=== PATIENT | male | born 1995 | race African-American/Black ===

== ENCOUNTER 2021-04-10 21:37 | Inpatient (IN) | payer OTHER ==
--- NOTE | 2021-04-10 22:05 | ED ---
Psych HPI - General Source: police, EMS, RN notes reviewed, old records reviewed Mode of arrival: EMS Limitations: altered mental status, physical limitation - History of Present Illness MD Complaint: altered mental status -: unknown Associated Psychiatric Symptoms: racing thoughts, auditory hallucinations Quality: resolved prior to arrival Improves With: medication Worsens With: none Context: other (Unknown) Associated Symptoms: other (Unknown) Treatments Prior to Arrival: placed on mental health hold <Derrell Gilman - Last Filed: 04/11/21 06:52> <Abelardo Sesay - Last Filed: 04/11/21 13:01> - General Chief Complaint: Psychiatric Symptoms Stated Complaint: Mental Health Time Seen by Provider: 04/10/21 21:39 - History of Present Illness Initial Comments: This is a unknown, patient is brought in under acute psychosis, delirium and now significantly sedated. Patient is unable history secondary sedated state (Derrell Gilman) - Related Data Home Medications Medication Instructions Recorded Confirmed Unable To Assess [Unable to Assess] 04/11/21 04/11/21 Allergies Allergy/AdvReac Type Severity Reaction Status Date / Time Unable to Assess Allergy Verified 04/10/21 21:58 Review of Systems ROS Other: All systems not noted in ROS Statement are negative. <Derrell Gilman - Last Filed: 04/11/21 06:52> ROS Other: All systems not noted in ROS Statement are negative. <Abelardo Sesay - Last Filed: 04/11/21 13:01> ROS Statement: Those systems with pertinent positive or pertinent negative responses have been documented in the HPI. Past Medical History Past Medical History: Unable to Obtain History of Any Multi-Drug Resistant Organisms: Unobtainable Past Surgical History: Unable to Obtain Past Psychological History: Unable to Obtain Smoking Status: Unknown if ever smoked Past Alcohol Use History: Unable to Obtain Past Drug Use History: Unable to Obtain <Derrell Gilman - Last Filed: 04/11/21 06:52> General Exam Limitations: altered mental status General appearance: alert, in no apparent distress Head exam: Present: atraumatic, normocephalic, normal inspection Eye exam: Present: normal appearance, PERRL, EOMI. Absent: scleral icterus, conjunctival injection, periorbital swelling ENT exam: Present: normal exam, mucous membranes moist Neck exam: Present: normal inspection. Absent: tenderness, meningismus, lymphadenopathy Respiratory exam: Present: normal lung sounds bilaterally. Absent: respiratory distress, wheezes, rales, rhonchi, stridor Cardiovascular Exam: Present: regular rate, normal rhythm, normal heart sounds. Absent: systolic murmur, diastolic murmur, rubs, gallop, clicks GI/Abdominal exam: Present: soft, normal bowel sounds. Absent: distended, tenderness, guarding, rebound, rigid Extremities exam: Present: normal inspection, full ROM, normal capillary refill. Absent: tenderness, pedal edema, joint swelling, calf tenderness Back exam: Present: normal inspection Neurological exam: Present: alert, oriented X3, CN II-XII intact Psychiatric exam: Present: normal affect, normal mood Skin exam: Present: warm, dry, intact, normal color. Absent: rash <Derrell Gilman - Last Filed: 04/11/21 06:52> Course <Derrell Gilman - Last Filed: 04/11/21 06:52> Vital Signs 04/10/21 04/10/21 04/10/21 21:52 22:00 22:20 Temperature 97.1 F L Pulse Rate 100 84 81 Respiratory 14 18 18 Rate Blood Pressure 122/75 136/90 137/89 O2 Sat by Pulse 100 97 96 Oximetry 04/10/21 04/10/21 04/10/21 22:40 23:00 23:30 Temperature Pulse Rate 76 79 77 Respiratory 18 18 18 Rate Blood Pressure 115/60 123/74 117/71 O2 Sat by Pulse 98 96 97 Oximetry 04/11/21 04/11/21 00:14 08:13 Temperature 97.6 F Pulse Rate 75 88 Respiratory 18 18 Rate Blood Pressure 109/64 131/90 O2 Sat by Pulse 96 100 Oximetry - Reevaluation(s) Reevaluation #1: 04/10/21 22:15 Medical records reviewed (Derrell Gilman) Procedures - Restraint - Face to Face Restraint Occurrence 1 Patient's Immediate Situation: Endangers self safety, Endangers others' safety, Endangers staff safety, Violent behavior Patient's Reaction to the Intervention: Appropriate, Uncooperative, Hostile, Anxious Need to Continue or Terminate Restraint or Seclusion: Continue Face to Face Eval of Restraint Date: 04/11/21 Face to Face Eval of Restraint Time: 03:00 Restraint Occurrence 2 Patient's Immediate Situation: Endangers self safety, Endangers others' safety, Endangers staff safety Patient's Reaction to the Intervention: Appropriate, Uncooperative, Anxious Patient's Medical & Behavioral Condition: Awake, Anxious, Agitated, Paranoid, Manic Need to Continue or Terminate Restraint or Seclusion: Continue Face to Face Eval of Restraint Date: 04/11/21 Face to Face Eval of Restraint Time: 07:00 <Derrell Gilman - Last Filed: 04/11/21 06:52> - Restraint - Face to Face Restraint Occurrence 3 Patient's Immediate Situation: Endangers self safety, Endangers others' safety, Endangers staff safety, Violent behavior Patient's Reaction to the Intervention: Uncooperative, Angry, Hostile, Ag gressive, Combative Patient's Medical & Behavioral Condition: Awake, Alert, Anxious, Agitated, Flight of ideas, Bizarre behavior Need to Continue or Terminate Restraint or Seclusion: Continue Face to Face Eval of Restraint Date: 04/11/21 Face to Face Eval of Restraint Time: 11:00 <Abelardo Sesay - Last Filed: 04/11/21 13:01> Medical Decision Making - Lab Data Result diagrams: 04/10/21 22:29 04/10/21 22:29 <Derrell Gilman - Last Filed: 04/11/21 06:52> - Lab Data Result diagrams: 04/10/21 22:29 04/10/21 22:29 - Radiology Data Radiology results: report reviewed (Imaging reviewed CT shows evidence of left occipital small hematoma otherwise unremarkable CAT scan.), image reviewed <Abelardo Sesay - Last Filed: 04/11/21 13:01> - Medical Decision Making Patient was evaluated by psychiatric service he is found to be a risk to himself he'll be admitted for inpatient evaluation and treatment of acute psychosis in mood disorder. Patient did become violent and did require restraint in the emergency department both physical and chemical. (Abelardo Sesay) - Lab Data Lab Results 04/10/21 04/10/21 04/11/21 Range/Units 22:29 22:29 02:50 WBC 10.0 (3.8-10.6) k/uL RBC 4.56 (4.30-5.90) m/uL Hgb 13.6 (13.0-17.5) gm/dL Hct 41.8 (39.0-53.0) % MCV 91.6 (80.0-100.0) fL MCH 29.9 (25.0-35.0) pg MCHC 32.6 (31.0-37.0) g/dL RDW 13.3 (11.5-15.5) % Plt Count 257 (150-450) k/uL MPV 8.4 Neutrophils % 89 % Lymphocytes % 6 % Monocytes % 3 % Eosinophils % 1 % Basophils % 0 % Neutrophils # 8.9 H (1.3-7.7) k/uL Lymphocytes # 0.6 L (1.0-4.8) k/uL Monocytes # 0.3 (0-1.0) k/uL Eosinophils # 0.1 (0-0.7) k/uL Basophils # 0.0 (0-0.2) k/uL Sodium 140 (137-145) mmol/L Potassium 3.9 (3.5-5.1) mmol/L Chloride 107 (98-107) mmol/L Carbon Dioxide 20 L (22-30) mmol/L Anion Gap 13 mmol/L BUN 13 (9-20) mg/dL Creatinine 0.74 (0.66-1.25) mg/dL Est GFR (CKD-EPI)AfAm 76 (>60 ml/min/1.73 sqM) Est GFR (CKD-EPI)NonAf 66 (>60 ml/min/1.73 sqM) Glucose 91 (74-99) mg/dL Calcium 8.5 (8.4-10.2) mg/dL Salicylates <1.0 mg/dL Urine Opiates Screen Not Detected (NotDetected) Ur Oxycodone Screen Not Detected (NotDetected) Urine Methadone Screen Not Detected (NotDetected) Ur Propoxyphene Screen Not Detected (NotDetected) Acetaminophen <10.0 ug/mL Ur Barbiturates Screen Not Detected (NotDetected) U Tricyclic Antidepress Not Detected (NotDetected) Ur Phencyclidine Scrn Not Detected (NotDetected) Ur Amphetamines Screen Not Detected (NotDetected) U Methamphetamines Scrn Not Detected (NotDetected) U Benzodiazepines Scrn Not Detected (NotDetected) Urine Cocaine Screen Not Detected (NotDetected) U Marijuana (THC) Screen Detected H (NotDetected) Serum Alcohol 146 mg/dL Coronavirus (PCR) (Not Detectd) 04/11/21 Range/Units 08:20 WBC (3.8-10.6) k/uL RBC (4.30-5.90) m/uL Hgb (13.0-17.5) gm/dL Hct (39.0-53.0) % MCV (80.0-100.0) fL MCH (25.0-35.0) pg MCHC (31.0-37.0) g/dL RDW (11.5-15.5) % Plt Count (150-450) k/uL MPV Neutrophils % % Lymphocytes % % Monocytes % % Eosinophils % % Basophils % % Neutrophils # (1.3-7.7) k/uL Lymphocytes # (1.0-4.8) k/uL Monocytes # (0-1.0) k/uL Eosinophils # (0-0.7) k/uL Basophils # (0-0.2) k/uL Sodium (137-145) mmol/L Potassium (3.5-5.1) mmol/L Chloride (98-107) mmol/L Carbon Dioxide (22-30) mmol/L Anion Gap mmol/L BUN (9-20) mg/dL Creatinine (0.66-1.25) mg/dL Est GFR (CKD-EPI)AfAm (>60 ml/min/1.73 sqM) Est GFR (CKD-EPI)NonAf (>60 ml/min/1.73 sqM) Glucose (74-99) mg/dL Calcium (8.4-10.2) mg/dL Salicylates mg/dL Urine Opiates Screen (NotDetected) Ur Oxycodone Screen (NotDetected) Urine Methadone Screen (NotDetected) Ur Propoxyphene Screen (NotDetected) Acetaminophen ug/mL Ur Barbiturates Screen (NotDetected) U Tricyclic Antidepress (NotDetected) Ur Phencyclidine Scrn (NotDetected) Ur Amphetamines Screen (NotDetected) U Methamphetamines Scrn (NotDetected) U Benzodiazepines Scrn (NotDetected) Urine Cocaine Screen (NotDetected) U Marijuana (THC) Screen (NotDetected) Serum Alcohol mg/dL Coronavirus (PCR) Not Detected (Not Detectd) Disposition <Derrell Gilman - Last Filed: 04/11/21 06:52> <Abelardo Sesay - Last Filed: 04/11/21 13:01> Clinical Impression: Acute psychosis, Mood disorder Disposition: TRANSFER TO PSYCH HOSP/UNIT Condition: Fair Referrals: None,Stated [Primary Care Provider] - 1-2 days
[2021-04-10 22:36] LABS: Basophils % (A) 0 %; Eosinophils # (A) 0.1 k/uL (0-0.7); Eosinophils % (A) 1 %; HCT 41.8 % (39.0-53.0); HGB 13.6 gm/dL (13.0-17.5); Lymphocytes # (A) 0.6 k/uL (1.0-4.8); Lymphocytes % (A) 6 %; MCH 29.9 pg (25.0-35.0); MCHC 32.6 g/dL (31.0-37.0); MCV 91.6 fL (80.0-100.0); Mean Platelet Volume 8.4; Monocytes # (A) 0.3 k/uL (0-1.0); Monocytes % (A) 3 %; Neutrophils # (A) 8.9 k/uL (1.3-7.7); Neutrophils % (A) 89 %; Platelet Count 257 k/uL (150-450); RBC 4.56 m/uL (4.30-5.90); RDW 13.3 % (11.5-15.5)
[2021-04-10 22:45] LABS: Acetaminophen <10.0 ug/mL; African American GFR (CKD) 76 (>60 ml/min/1.73 sqM); Anion Gap 13 mmol/L; Blood Urea Nitrogen 13 mg/dL (9-20); Calcium 8.5 mg/dL (8.4-10.2); Carbon Dioxide 20 mmol/L (22-30); Chloride 107 mmol/L (98-107); Glucose 91 mg/dL (74-99); Non-African American GFR(CKD) 66 (>60 ml/min/1.73 sqM); Potassium 3.9 mmol/L (3.5-5.1); Salicylate <1.0 mg/dL; Sodium 140 mmol/L (137-145)
[2021-04-10 22:46] LABS: Alcohol 146 mg/dL
[2021-04-11] MEDS ORDERED: diphenhydrAMINE 50 MG/ML 1 ML VIAL IM STA ×2 (02:59→08:59)
[2021-04-11] MEDS ORDERED: LORazepam 2 MG/ML INJ IM STA ×2 (02:59→08:59)
[2021-04-11] MEDS ORDERED: ZIPRASIDONE 20 MG VIAL IM STA ×2 (03:06→08:59)
[2021-04-11 03:32] LABS: Amphetamine Screen,Urine Not Detected (NotDetected); Barbiturate Screen,Urine Not Detected (NotDetected); Benzodiazepines Screen,Urine Not Detected (NotDetected); Cocaine Screen,Urine Not Detected (NotDetected); Methadone Screen, Urine Not Detected (NotDetected); Opiate Screen,Urine Not Detected (NotDetected); Oxycodone Screen, Urine Not Detected (NotDetected); Phencyclidine Screen,Urine Not Detected (NotDetected); Tricyclic Antidepressant,Urine Not Detected (NotDetected); Urn Cannabinoid Scrn Detected (NotDetected)
--- NOTE | 2021-04-11 12:41 | CT ---
EXAMINATION TYPE: CT brain wo con DATE OF EXAM: 04/11/2021 COMPARISON: None. HISTORY: possible brain injury, headache. CT DLP: 1059.4 mGycm. Automated Exposure Control for Dose Reduction was Utilized. TECHNIQUE: CT scan of the head is performed without contrast. FINDINGS: There is no acute intracranial hemorrhage, mass effect, or midline shift identified. The ventricles and sulci are within normal limits in size. Hunt-white matter differentiation is maintain ed. The globes are intact and the visualized sinuses are clear. Small high left occipital acute scal p hematoma near axial image 53. The calvarium is intact. IMPRESSION: Small high left occipital acute scalp hematoma otherwise unremarkable study
[2021-04-11] MEDS ORDERED: MAGNESIUM HYDROXIDE 2,400 MG/10 ML CUP PO PRN (13:19)
[2021-04-11] MEDS ORDERED: ACETAMINOPHEN TAB 325 MG TAB PO PRN (13:19)
[2021-04-11] MEDS ORDERED: MAG HYDROX/AL HYDROX/SIMETH 30 ML CUP PO PRN (13:19)
[2021-04-11] MEDS ORDERED: chlorproMAZINE 25 MG TAB PO PRN (13:26)
[2021-04-11] MEDS: LORazepam 2 MG/ML INJ IM PRN (14:32)
[2021-04-11] MEDS: chlorproMAZINE 25 MG/ML 2 ML AMP IM PRN (14:33)
--- NOTE | 2021-04-11 14:52 | P.MHFACE ---
Face to Face Restrain/Seclus - Evaluation Patient's Immediate Situation: Endangers self safety, Endangers others' safety, Endangers staff safety, Violent behavior Patient's Reaction to the Intervention: Angry, Hostile, Belligerent, Aggressive, Combative, Resistive to care Patient's Medical & Behavioral Condition: Awake, Alert, Agitated, Manic Need to Continue or Terminate Restraint or Seclusion: Continue Face to Face Eval of Restraint Date: 04/11/21 Face to Face Eval of Restraint Time: 14:45
[2021-04-11] MEDS: NICOTINE 14MG/24HR PATCH TRANSDERM SCH (16:17)
[2021-04-11] MEDS ORDERED: chlorproMAZINE 25 MG TAB PO STA (16:38)
--- NOTE | 2021-04-11 23:00 | P.PN ---
Progress Note - Text Progress Note Date: 04/11/21 The patient has been actively psychotic and also refused to be seen or evaluated.
[2021-04-12] MEDS: LORazepam 2 MG/ML INJ IM PRN (06:30)
[2021-04-12] MEDS: chlorproMAZINE 25 MG/ML 2 ML AMP IM PRN (06:30)
[2021-04-12] MEDS: NICOTINE 14MG/24HR PATCH TRANSDERM SCH (09:29)
[2021-04-12] MEDS ORDERED: chlorproMAZINE 25 MG/ML 2 ML AMP IM ONE (10:17)
[2021-04-12] MEDS ORDERED: chlorproMAZINE 25 MG TAB PO PRN (11:12)
[2021-04-12] MEDS ORDERED: LORazepam 2 MG/ML INJ IM PRN (11:13)
[2021-04-12] MEDS ORDERED: chlorproMAZINE 25 MG/ML 2 ML AMP IM PRN (11:13)
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
[2021-04-12 12:44] LABS: Chol/HDL Ratio 2.95 Ratio; HDL Cholesterol 44.7 mg/dL (40.00-60.00); LDL Cholesterol,Calculated 71.3 mg/dL (0.0-131.0); Triglycerides 80.1 mg/dL (0.00-149.00); VLDL Calculation 16.02 mg/dL (5.00-40.00)
[2021-04-12] MEDS: LORazepam 1 MG TAB PO PRN (15:33)
[2021-04-13] MEDS: NICOTINE 14MG/24HR PATCH TRANSDERM SCH (08:07)
[2021-04-13] MEDS ORDERED: cloNIDine HCL 0.1 MG TAB PO STA (10:12)
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
[2021-04-13] MEDS ORDERED: cloNIDine HCL 0.1 MG TAB PO SCH (21:00)
[2021-04-13] MEDS: PALIPERIDONE 3 MG TAB.ER.24 PO SCH (21:18)
[2021-04-14] MEDS: cloNIDine HCL 0.2 MG TAB PO SCH ×2 (08:18→20:10)
[2021-04-14 08:26] VITALS: RESP 16; TEMP 97.7
[2021-04-14] MEDS: NICOTINE 14MG/24HR PATCH TRANSDERM SCH (08:26)
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
[2021-04-14] MEDS: LORazepam 1 MG TAB PO PRN (17:11)
--- NOTE | 2021-04-14 17:58 | P.MDCNMH ---
History of Present Illness H&P Date: 04/14/21 Chief Complaint: Medical clearance 25-year-old man with no medical history presented for acute psychosis to the mental health unit. Medicine was consulted for medical clearance. Patient has no complaints at this time. Review of systems was negative for fevers, chills, nausea, vomiting, chest pain, palpitations, syncope, presyncope, abdominal pain, constipation, diarrhea, cough, dyspnea, dysuria, numbness/weakness. I reviewed his chart and did note that he has been at times tachycardic and hypertensive, controlled with clonidine. Review of Systems All Systems reviewed and pertinent positives and negatives noted in HPI, all other symptoms are negative Past Medical History Past Medical History: Unable to Obtain History of Any Multi-Drug Resistant Organisms: Unobtainable Past Surgical History: Unable to Obtain Smoking Status: Unknown if ever smoked Medications and Allergies Home Medications Medication Instructions Recorded Confirmed Type Unable To Assess [Unable to Assess] 04/11/21 04/11/21 History Allergies Allergy/AdvReac Type Severity Reaction Status Date / Time Unable to Assess Allergy Verified 04/10/21 21:58 Physical Exam Osteopathic Statement: *. No significant issues noted on an osteopathic structural exam other than those noted in the History and Physical/Consult. Vitals: Vital Signs Temp Pulse Resp BP Pulse Ox 04/14/21 08:00 97.7 F 96 16 120/82 98 04/13/21 21:20 103 H 14 138/71 Intake and Output 04/14/21 04/14/21 04/14/21 06:59 14:59 22:59 Other: Weight 77.79 kg Gen: awake, alert HEENT: normocephalic, atraumatic, good hearing acuity, moist mucous membranes Resp: good air exchange, breathing comfortably with no accessory muscle use CVS: good distal perfusion x 4, GI: soft, NTTP, ND : no SPT, no CVAT, blair catheter not present MSK: no pitting edema, no clubbing Neuro: non-focal, moving all extremities Psych: cooperative, euthymic mood Cranial Nerve Examination - Cranial Nerves Cranial Nerve II- Optic: Intact Cranial Nerve III- Oculomotor: Intact Cranial Nerve IV- Trochlear: Intact Cranial Nerve V- Trigeminal: Intact Cranial Nerve - Abducens: Intact Cranial Nerve VII- Facial: Intact Cranial Nerve VIII- Auditory: Intact Cranial Nerve IX- Glossopharyngeal: Intact Cranial Nerve X- Vagus: Intact Cranial Nerve XI- Accessory: Intact Cranial Nerve XII- Hypoglossal: Intact Results CBC & Chem 7: 04/10/21 22:29 04/10/21 22:29 Assessment and Plan Assessment: Hypertension Tachycardia -Agree with clonidine twice a day -Likely secondary to acute psychosis and agitation, now appears resolved -Continue consider discontinuing clonidine to see if patient is requiring antihypertensives upon discharge Acute psychosis Post-manic stress disorder -Care per primary team
[2021-04-14] MEDS: PALIPERIDONE 3 MG TAB.ER.24 PO SCH (20:10)
[2021-04-15] MEDS: cloNIDine HCL 0.2 MG TAB PO SCH ×2 (08:06→20:53)
[2021-04-15] MEDS: NICOTINE 14MG/24HR PATCH TRANSDERM SCH (08:09)
--- NOTE | 2021-04-15 11:51 | P.PN ---
Progress Note - Text Progress Note Date: 04/15/21 Clinical Problems: Acute psychosis, alcohol intoxication, post traumatic stress disorder, rule out alcohol use disorder, rule out cluster B personality disorder. Interim history: I reviewed the medical record and interviewed the patient. He denied problems or concerns other than wanting to be discharge and returning to work. I spoke with Dr. Neely said that he wants to person only assessed Rene prior to discharge. I explained the situation to Rene. He took them use approximately well considering yesterday he was insisting that he would lose his job if he were to be discharged Friday. He attributed to marked change in behavior to the alcohol use and implied that he has had blackouts with changes in behavior in the past. Mental status exam: He presented as a casually groomed young -[place] male with long braided hair. He made eye contact and attended to the interview. He had no distinguishing features or prominent physical abnormalities. He had a blunted but bright facial expression. He had no abnormality of psychomotor activity. Her speech was spontaneous with normal rate and volume. His affect was stable and appropriate. He denied suicidal ideation, wishes or homicidal ideation. He denied feeling hopeless, helpless or worthless. Denies express phobias, ideas reference, paranoid ideation, magical ideation or delusions. His thinking was abstract and associations were coherent, logical goal-directed. He denied hallucinations did not appear to be responding to internal stimuli. Assessment: Overall he appears much to improve from admission. Plan: Continue inpatient treatment. Safety precautions. Discontinue one-to-one. Continue Invega with titration to 6 mg on 04/15/2021. Thorazine and/or Ativan when necessary for agitation or aggression. Habitrol for smoking cessation. Encourage participation in therapeutic groups and activities. Evaluate clinical status response to treatment daily basis.
[2021-04-15] MEDS ORDERED: PALIPERIDONE 6 MG TAB.ER.24 PO SCH (21:00)
[2021-04-15] MEDS: LORazepam 1 MG TAB PO PRN (22:21)
[2021-04-16] MEDS: cloNIDine HCL 0.2 MG TAB PO SCH (08:03)
[2021-04-16 08:04] VITALS: BP 133/70; PULSE 101
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
== END 2021-04-16 12:25 | disposition home or self-care (01) | DRG 885 ==
LOC: EC 21:37 → 3MHU 04-11 13:17
PROVIDERS: ADMIT Psychiatry & Neurology Psychiatry; ATTEND Psychiatry & Neurology Psychiatry
DX: F32.3 Major depressive disorder, single episode, severe with psychotic features (principal); F10.129 Alcohol abuse with intoxication, unspecified; F60.89 Other specific personality disorders; F60.3 Borderline personality disorder; Y90.6 Blood alcohol level of 120-199 mg/100 ml; Z20.822 Contact with and (suspected) exposure to COVID-19; F43.10 Post-traumatic stress disorder, unspecified; F12.10 Cannabis abuse, uncomplicated; I10 Essential (primary) hypertension; F17.200 Nicotine dependence, unspecified, uncomplicated; Z71.6 Tobacco abuse counseling; Z62.810 Personal history of physical and sexual abuse in childhood; Z78.1 Physical restraint status
CPT/HCPCS: 36415; 70450; 80048; 80061; 80143; 80179; 80306; 80320; 83036; 84443; 85025; 87635; 96372; 99285